=== PATIENT | male | born 1985 | race Caucasian/White ===

== ENCOUNTER → 2020-11-04 | Outpatient (CLI) | payer OTHER | LOC: WCC 13:00 | PROC: 0JB70ZZ Excision of Back Subcutaneous Tissue and Fascia, Open Approach (ICD-10-PCS; principal; 2020-11-04) | DX: L89.323 Pressure ulcer of left buttock, stage 3 (principal); T81.32XA Disruption of internal operation (surgical) wound, not elsewhere classified, initial encounter; R73.03 Prediabetes; Z72.0 Tobacco use ==

== ENCOUNTER → 2020-12-22 | Outpatient (CLI) | payer OTHER | LOC: WCC 14:00 | DX: L89.323 Pressure ulcer of left buttock, stage 3 (principal); T81.32XA Disruption of internal operation (surgical) wound, not elsewhere classified, initial encounter; R73.03 Prediabetes; F17.210 Nicotine dependence, cigarettes, uncomplicated; Z79.2 Long term (current) use of antibiotics ==